=== PATIENT | female | born 1950 | race Caucasian/White ===

== ENCOUNTER 2016-07-17 14:00 | Day surgery (SDC) | payer OTHER ==
[~2016-07-17 14:00] MED LIST: APRACLONIDINE HCL 50 DROP BTL LEFTEYE PRN; PHENYLEPHRINE HCL 50 DROP BTL LEFTEYE PRN
--- OUTSIDE RECORDS SUMMARY | 2016-07-17 14:05 | XMS REPORT | Continuity of Care Document ---
:1950 Author Organization [facility] ([facility]) Address [address] [place] [address] Phone [phone] Care Team Providers Name Role Phone Higinio Sumner Primary Care Provider [phone] Source Comments This disclosure is being made pursuant to the Care Everywhere program, applicable federal and state laws, and may not contain all informaitonavailable regarding this patient.[facility] ([facility]) Active Allergies and Adverse Reactions Allergen Noted Date Severity Reactions Comments Bee Stings Anaphylactic Shock Codeine Angioedema Non-Med Wasp Stings Anaphylactic Shock Current Medications Prescription Sig. Disp. Refills Start Date End Date Status valACYclovir (VALTREX) Take 1,000 mg by Active 1,000 mg tablet mouth as needed. OTHER 4 Tabs daily. Active ALKALET---([place] of Calcium carbonate, magnesium hydroxide and potassium hydroxide) cyclobenzaprine 10 mg Take 10 mg by Active tablet mouth as needed. traMADol 50 mg tablet Take 25 mg by Active mouth daily as needed. CALCIUM Take 2,000 mg by Active CARBONATE/VITAMIN D3 mouth daily. (VITAMIN D-3 PO) omeprazole 20 mg Take 1 capsule 90 capsule 3 05/22/2016 Active enteric coated capsule (20 mg total) by mouth daily. Take 30 min before eating. Active Problems Problem Noted Date Intestinal metaplasia of gastric mucosa 10/14/2013 Overview: EGD 08/2012, Dr. Araujo " focal intestinal metaplasia only in the gastric antrum, no dysplasia and no other abnormalities. There are no consensus guidelines for management in this situation although therisk of progression to malignancy in this situation is likely very low. If surveillance is desired, this could be considered in 2 years. Please contact us at that time to assist with management if desired" Tubular adenoma of colon 10/14/2013 Overview: 08/2012, Dr. Araujo - colonoscopy, there was one small adenoma removed. Current guidelines would suggest repeating a colonoscopy for screening purposes in 5 years, health permitting. Retinal hole or tear, right 01/10/2012 Overview: Formatting of this note may be different from the original. RIGHT EYE LEFT EYE Date Diagnosis Procedure Comments Diagnosis Procedure Comments Other Ocular Diagnoses: 1. 2. Ocular Procedures OD: 1. Cat 2. Ocular Procedures OS: 1. cat 2. Non-Ocular Medical History: 1. Hep C efren typle 4 2. Chronic hepatitis C without mention of hepatic coma 07/12/2006 Most Recent Encounters Date Type Specialty Providers Description 05/22/2016 Office Visit Med GI/Hepatology Default, Other Dx: Erosive Billg - Defo esophagitis (Primary Ramo Page, Dx) Angela Doimngo PA-C 05/22/2016 Office Visit Pathology Angela Love, Chief Comp: Patient LARRY Reported Reason For Lab Services, Irl Visit 05/22/2016 Hospital Encounter Radiology Korina Gonzáles Dx: Cirrhosis MD Kate 05/22/2016 Orders Only Med GI/Hepatology Patrick Ivy Dx: Cirrhosis 05/22/2016 Ancillary Orders Med GI/Hepatology Angela Love, Dx: Cirrhosis LARRY (Primary Dx) Immunizations Name Dates Previously Given Next Due Influenza, quadrivalent PF 02/28/2013 Social History Tobacco Use Types Packs/Day Years Used Date Never Smoker Smokeless Tobacco: Never Used Tobacco Cessation:Counseling Given: No Comments: Alcohol Use Drinks/Week oz/Week Comments No Quit Last Filed Vital Signs Vital Sign Reading Time Taken Blood Pressure 121/78 05/22/2016 10:19 AM SEE WHEELER Pulse 70 05/22/2016 10:19 AM SEE WHEELER Temperature 36.5 C (97.7 F) 05/22/2016 10:19 AM SEE WHEELER Respiratory Rate 16 08/29/2013 2:53 PM CDT Height 1.549 m (5' 1") 05/22/2016 10:19 AM SEE WHEELER Weight 74 kg (163 lb 2.3 oz) 05/22/2016 10:19 AM SEE WHEELER Body Mass Index 30.84 05/22/2016 10:19 AM SEE WHEELER Oxygen Saturation 97% 08/29/2013 2:53 PM CDT Plan of Care Date Type Specialty Providers Description 11/20/2016 Appointment Radiology Subj: Appointment Scheduled 11/20/2016 Appointment Med GI/Hepatology Default, Other Billg - Defo [address] [place] [address] [phone] (Fax) Subj: Appointment Angela Lvoe PA-C [address] [place] [address] [phone] (Fax) Rescheduled 11/20/2016 Appointment Med GI/Hepatology Shadia Brand MD Subj: Appointment [address] [facility] [place] [address] [phone] (Fax) Health Maintenance Due Date Last Done Comments HCV Screening 1950 Hepatitis B Vaccine (1 of 3 - Primary Series) 1950 Tdap Vaccine 11/02/1962 Lipid Disorder Screening 11/02/1969 Td Vaccine 11/02/1969 Pneumococcal Vaccine (1 of 1 - PPSV23) 11/02/1970 Cervical Cancer Screening 11/02/1981 Mammogram 1991 Zoster Vaccine 2011 Influenza Vaccine: Seasonal (#1) 11/15/2015 02/28/2013 Colonoscopy 09/03/2023 09/02/2013 Results from Last 3 Months CREATININE (05/22/2016 10:05 AM) Component Value Range Creatinine 0.7Comment: 0.5-1.0 mg/dL Creatinine switched to enzymatic method on 08/23/2010.GFR equation switched to IDMS-traceable MDRD equation on 08/23/2010. Calculated GFR values are not valid in clinical settings where serum creatinine is changing. Calculated GFR 84 >60 mL/min/1.73 m2 Specimen Blood GLUCOSE (05/22/2016 10:05 AM) Component Value Range Glucose 102(H)Comment: 65-99 mg/dL The Expert Committee on the Diagnosis and Classification of Diabetes has defined impaired fasting glucose as greater than or equal to 100 mg/dL but less than 126 mg/dL.(Diabetes Care 28 (Suppl 1)S41,2005) Specimen Blood ALPHA-FETOPROTEIN (05/22/2016 10:05 AM) Component Value Range AFP 3.2 0.0-9.0 ng/mL Specimen Blood GAMMA GLUTAMYLTRANSPEPTIDASE (05/22/2016 10:05 AM) Component Value Range GGT 11 5-36 U/L Specimen Blood HEPATIC FUNCTION PANEL (05/22/2016 10:05 AM) Component Value Range Albumin 4.0 3.4-4.8 g/dL ALP 49 35-104 U/L Bilirubin Total 0.5 <=1.2 mg/dL Bilirubin, Direct <0.2 0.0-0.2 mg/dL AST 18Comment: 0-32 U/L Adult reference ranges updated on 03/11/13 at 830am ALT 19Comment: 0-33 U/L The upper limit of normal for alanine aminotransferase (ALT) reference ranges for adults is controversial with some authorities recommending limit as low as 30 U/L for males and 19 U/L for females. Th ere is increased incidence of subclinical liver disease (e.g., early steatohepatitis) in patients with ALT values in the range of 31-41 U/L for males and 20-33 U/L for females. ALT values should alway s be interpreted in conjunction with clinical history, physical examination findings, and, if applicable, data from other diagnostic tests. Total Protein 7.3 6.0-8.0 g/dL Specimen Blood PT/INR (PROTHROMBIN TIME/INR) VENOUS (05/22/2016 10:05 AM) Component Value Range PT (Prothrombin Time) 11 9-12 secs INR 1.1 <4.0 Specimen Blood CBC (COMPLETE BLOOD COUNT) (05/22/2016 10:05 AM) Component Value Range WBC Count 5.3 3.7-10.5 K/MM3 RBC Count 4.42 4.00-5.20 M/MM3 Hemoglobin 13.3 11.9-15.5 g/dL Hematocrit 40 35-47 % MCV (Mean Corpuscular Volume) 90 82-99 FL MCH (Mean Corpuscular Hemoglobin) 30 25-35 PG MCHC (Mean Corpuscular Hemoglobin Concentration) 33 32-36 % Platelet Count 159 150-400 K/MM3 MPV (Mean Platelet Volume) 11.2 9.4-12.3 FL RBC Dist Width-STD 42.1 36.4-46.3 FL RBC Distrib Width 13.0 9.0-14.5 % Specimen Blood US ABDOMEN LIMITED (05/22/2016 10:04 AM) Impressions Impression: 1. Mildly cirrhotic liver without focal liver lesions. Patent portal vein. 2. Borderline splenomegaly. No ascites. Final (Updating) Narrative [facility] Department of Radiology Ultrasound Division [address] [place] [address] ULTRASOUND REPORT NAME:TANISHA MCKEON Date of Service: 05/22/2016 MRN NO.: [id number] Date: 05/22/2016 Patient's : 1950 Resident/Tech: wTerri Sprague Patient's Age: 65 yearsReferring MD: ANGELA LOVE Indication: Cirrhosis, surveillance ultrasound, screen for liver lesion, HCC. Technique: Liver, spleen, ascites surveillance grayscale ultrasound. Findings: Liver: +---------+ + +--------+ + :Size (cm):Echogenicity:Echotexture:Shape :Vascularity: +---------+ + +--------+ + :15.0 :Normal. :Coarse echotexture.:Nodular.:Normal.: +---------+ + +--------+ + Spleen: Spleen measures 13.2 x 13.0 x 5.2 cm. Ascites: No ascites. Procedure Note Alvaro, Incoming Imaging Results - SunJun 05, 2016 10:24 AM SEE WHEELER [facility] Department of Radiology Ultrasound [place] [address] ULTRASOUND REPORT NAME: TANISHA MCKEON Date of Service: 05/22/2016 MRN NO.: [id number] Review Date: 05/22/2016 Patient's : 1950 Resident/Tech: agus Sprague Patient's Age: 65 years Referring MD: ANGELA LOVE Indication: Cirrhosis, surveillance ultrasound, screen for liver lesion,HCC. Technique: Liver, spleen, ascites surveillance grayscale ultrasound. Findings: Liver: +---------+ + +--------+ + :Size (cm):Echogenicity:Echotexture :Shape :Vascularity: +---------+ + +--------+ + :15.0 :Normal. :Coarse echotexture.:Nodular.:Normal. : +---------+ + +--------+ + Spleen: Spleen measures 13.2 x 13.0 x 5.2 cm. Ascites: No ascites. IMPRESSION Impression: 1. Mildly cirrhotic liver without focal liver lesions. Patent portalvein. 2. Borderline splenomegaly. No ascites. Final (Updating)
[2016-07-17] MEDS: TROPICAMIDE 150 DROP BTL LEFTEYE PRN ×2 (14:14→14:15)
[2016-07-17 14:17] VITALS: BP 120/73
== END 2016-07-17 14:01 | disposition home or self-care (01) ==
LOC: AMB 14:00
PROVIDERS: ATTEND Ophthalmology
DX: H26.40 Unspecified secondary cataract (principal)

== ENCOUNTER 2016-09-26 07:27 | Emergency (ER) | payer OTHER ==
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
--- OUTSIDE RECORDS SUMMARY | 2016-09-26 08:46 | XMS REPORT | Continuity of Care Document ---
:1950 Author Organization [facility] ([facility]) Address [address] [place] [address] Phone [phone] Care Team Providers Name Role Phone Higinio Sumner Primary Care Provider [phone] Source Comments This disclosure is being made pursuant to the Care Everywhere program, applicable federal and state laws, and may not contain all informaitonavailable regarding this patient.[facility] ([facility]) Active Allergies and Adverse Reactions Allergen [...] C without mention of hepatic coma 07/12/2006 Immunizations Name Dates Previously Given Next Due Influenza, quadrivalent PF 02/28/2013 Social History Tobacco Use Types Packs/Day Years Used Date Never Smoker Smokeless Tobacco: Never Used Tobacco Cessation:Counseling Given: No Comments: Alcohol Use Drinks/Week oz/Week Comments No Quit Last Filed Vital Signs Vital Sign Reading Time Taken Blood Pressure 121/78 05/22/2016 10:19 AM HOG DROPPER Pulse 70 05/22/2016 10:19 AM HOG DROPPER Temperature 36.5 C (97.7 F) 05/22/2016 10:19 AM HOG DROPPER Respiratory Rate 16 08/29/2013 2:53 PM CDT Height 1.549 m (5' 1") 05/22/2016 10:19 AM HOG DROPPER Weight 74 kg (163 lb 2.3 oz) 05/22/2016 10:19 AM HOG DROPPER Body Mass Index 30.84 05/22/2016 10:19 AM HOG DROPPER Oxygen Saturation 97% 08/29/2013 2:53 PM CDT Plan of Care Date Type Specialty Providers Description 11/20/2016 Appointment Radiology Subj: Appointment Scheduled 11/20/2016 Appointment Med GI/Hepatology Default, Other Billg - Defo [address] [place] [address] [phone] (Fax) Subj: Appointment Angela Hamilton PA-C [address] [place] [address] [phone] (Fax) Rescheduled 11/20/2016 Appointment Med GI/Hepatology Shadia Brand MD Subj: Appointment [address] [place] [address] [phone] (Fax) Health Maintenance Due Date Last Done Comments HCV Screening 1950 Hepatitis B Vaccine (1 of 3 - Primary Series) 1950 Tdap Vaccine 11/02/1962 Lipid Disorder Screening 11/02/1969 Td Vaccine 11/02/1969 Pneumococcal Vaccine (1 of 1 - PPSV23) 11/02/1970 Cervical Cancer Screening 11/02/1981 Mammogram 1991 Zoster Vaccine 2011 Influenza Vaccine: Seasonal (Season Ended) 2016 02/28/2013 Colonoscopy 09/03/2023 09/02/2013 Results from Last 3 Months Not on file
[2016-09-26 09:20] VITALS: BP 132/72
== END 2016-09-26 09:40 | disposition home or self-care (01) ==
LOC: ER 07:27
DX: M84.463A Pathological fracture, right fibula, initial encounter for fracture (principal); Z72.0 Tobacco use; W18.30XA Fall on same level, unspecified, initial encounter; Y93.K1 Activity, walking an animal; Y92.9 Unspecified place or not applicable